=== PATIENT | male | born 1960 | race Caucasian/White ===

== ENCOUNTER 2019-12-10 10:09 | Emergency (ER) | payer MEDICAID ==
[~2019-12-10] VITALS: Ht 172.7 cm; Wt 146.0 kg
[2019-12-10] MEDS ORDERED: TETANUS, DIPHTHERIA, PERTUSSIS VAC/PF 0.5ML (>7YR OLD) IM ONE (11:30)
[2019-12-10] MEDS ORDERED: IBUPROFEN 600MG TABLET PO ONE (11:30)
[2019-12-10 14:50] VITALS: BP 127/66
== END 2019-12-10 16:35 | disposition home or self-care (01) ==
LOC: ER 10:17
DX: S01.21XA Laceration without foreign body of nose, initial encounter (principal); G89.29 Other chronic pain; M25.562 Pain in left knee; M25.561 Pain in right knee; M25.512 Pain in left shoulder; I50.9 Heart failure, unspecified; J44.9 Chronic obstructive pulmonary disease, unspecified; Z95.0 Presence of cardiac pacemaker; W06.XXXA Fall from bed, initial encounter; Y93.89 Activity, other specified; Y92.89 Other specified places as the place of occurrence of the external cause; Y99.8 Other external cause status
CPT/HCPCS: 12011; 90471; 90715; 99283; Z7610